=== PATIENT | female | born 1960 | race Asian ===

== ENCOUNTER 2023-10-10 11:11 | Emergency (ER) | payer MEDICAID ==
[~2023-10-10] VITALS: Ht 157.5 cm; Wt 81.6 kg
[2023-10-10 11:19] VITALS: BP_SYST 122; PULSE 104; RESP 22; TEMP 98.3; O2SAT 98
[2023-10-10 12:37] LABS: BASOPHILS % (AUTO) 0.3 % (0.0-2.0); HEMATOCRIT 36.9 % (36-48); HEMOGLOBIN 12.2 g/dL (12.0-16.0); LYMPHOCYTES # (AUTO) 2.2 K/uL (1.0-5.5); LYMPHOCYTES % (AUTO) 34.9 % (20.5-51.5); MEAN CORPUSCULAR HEMOGLOBIN 31 pg (27-31); MEAN CORPUSCULAR HGB CONC 33 % (32-36); MEAN CORPUSCULAR VOLUME 95 fL (79.0-98.0); MONOCYTES # (AUTO) 0.8 K/uL (0.0-1.0); MONOCYTES % (AUTO) 12.2 % (1.7-9.3); NEUTROPHILS # (AUTO) 3.3 K/uL (1.8-7.7); NEUTROPHILS % (AUTO) 52.6 % (40.0-70.0); PLATELET COUNT (AUTO) 151 K/uL (130-430); RED BLOOD CELL COUNT(AUTO) 3.91 MIL/uL (4.2-6.2); RED CELL DISTRIBUTION WIDTH 15.6 % (9.0-15.0); WHITE BLOOD COUNT (AUTO) 6.3 K/uL (4.8-10.8)
[2023-10-10 13:15] LABS: CALCIUM 8.6 mg/dL (8.4-11.0); CREATININE 0.81 mg/dL (0.55-1.30); POTASSIUM 3.5 mmol/L (3.5-5.1)
[2023-10-10 13:57] VITALS: BP_SYST 122; PULSE 99; O2SAT 98
== END 2023-10-10 13:57 | disposition home or self-care (01) ==
LOC: SED 11:11
DX: R56.9 Unspecified convulsions (principal); R51.9 Headache, unspecified; R53.1 Weakness; F20.9 Schizophrenia, unspecified
CPT/HCPCS: 36415; 70450-TC; 80048; 80164; 83605; 85025; 99284